=== PATIENT | male | born 1990 | race African-American/Black ===

== ENCOUNTER 2021-08-17 20:03 | Emergency (ER) | payer SELFPAY ==
[2021-08-17] MEDS ORDERED: Ketorolac Tromethamine 30 MG/ML VIAL ONE (20:53)
[2021-08-17] MEDS ORDERED: HYDROcodone/Acetaminophen 5/325 mg Tablet ONE (20:56)
== END 2021-08-17 21:15 | disposition home or self-care (01) ==
LOC: CSHERS 20:03
DX: K08.89 Other specified disorders of teeth and supporting structures (principal); F17.210 Nicotine dependence, cigarettes, uncomplicated
CPT/HCPCS: 96372; 99283; J1885

== ENCOUNTER 2025-06-07 20:06 | Emergency (ER) | payer OTHER ==
[2025-06-07] MEDS ORDERED: HYDROcodone/Acetaminophen 5/325 mg Tablet ONE (20:49)
== END 2025-06-07 20:47 | disposition home or self-care (01) ==
LOC: CSHERS 20:06
DX: K04.7 Periapical abscess without sinus (principal); K08.89 Other specified disorders of teeth and supporting structures; F17.200 Nicotine dependence, unspecified, uncomplicated
CPT/HCPCS: 99282